=== PATIENT | male | born 1965 | race Caucasian/White ===

== ENCOUNTER 2021-06-17 22:07 | Emergency (ER) | payer OTHER ==
[~2021-06-17 22:07] MED LIST changes: -ULTRAM50 MG PO
[2021-06-18 00:23] LABS: HCT 43.1 % (42.0-52.0); HGB 14.5 g/dl (13.2-18.0); MCH 31.1 pg (25.0-31.0); MCHC 33.6 g/dL (32.0-36.0); MCV 92.5 fL (78.0-100.0); MPV 8.6 fL (6.0-9.5); RBC 4.66 M/uL (4.70-6.00); RDW 12.7 % (11.5-14.0); WBC 6.8 K/uL (4.0-10.5)
[2021-06-18 00:38] LABS: BUN/CREAT RATIO (CALC) 16.4 RATIO; CREATININE 0.67 mg/dL (0.67-1.17); POTASSIUM 4.2 mmol/L (3.5-5.1)
[2021-06-18] MEDS ORDERED: ULTRAM50 MG PO (08:36)
== END 2021-06-18 01:35 | disposition home or self-care (01) ==
LOC: FER 22:07
PROVIDERS: Emergency Medicine
DX: R00.2 Palpitations (principal)
CPT/HCPCS: 36415; 71045; 80048; 84484; 93005

== ENCOUNTER → 2021-06-17 | Day surgery (SDC) | payer OTHER ==
[~2021-06-17] VITALS: Ht 195.6 cm; Wt 89.0 kg
[~2021-06-17] MED LIST: ALEVE220 M1 PO; PERCOCET 5-3251 EACH PO; ULTRAM50 MG PO
[2021-06-17 09:34] LABS: HCT 43.6 % (42.0-52.0); HGB 14.8 g/dl (13.2-18.0); MCH 31.1 pg (25.0-31.0); MCHC 33.9 g/dL (32.0-36.0); MCV 91.6 fL (78.0-100.0); MPV 8.4 fL (6.0-9.5); RBC 4.76 M/uL (4.70-6.00); RDW 12.7 % (11.5-14.0)
[2021-06-17 09:51] LABS: ALBUMIN 4.1 g/dL (3.4-5.0); BILIRUBIN - TOTAL 0.5 mg/dL (0.2-1.0); BUN/CREAT RATIO (CALC) 12.9 RATIO; CREATININE 0.7 mg/dL (0.67-1.17); GLOBULIN (CALCULATION) 3.8 g/dL; POTASSIUM 4.1 mmol/L (3.5-5.1); TOTAL PROTEIN 7.9 g/dL (6.4-8.2)
== END | disposition home or self-care (01) ==
LOC: FAS 08:42
PROVIDERS: Orthopaedic Surgery
DX: M75.112 Incomplete rotator cuff tear or rupture of left shoulder, not specified as traumatic (principal); M75.52 Bursitis of left shoulder; M77.8 Other enthesopathies, not elsewhere classified; M25.812 Other specified joint disorders, left shoulder
CPT/HCPCS: 36415; 71045; 80053; 93005; J0171; J0690; J1100; J2250; J2704; J2710; J2795; J3010; J7120

== ENCOUNTER 2022-05-16 13:36 | Emergency (ER) | payer OTHER ==
[~2022-05-16 13:36] MED LIST changes: +DAILY VALUE1 EACH PO; +TRAMADOL PO; +ULTRAM50 MG PO; +VITAMIN B-121000 MC1 PO; +VITAMIN B6 PO
== END 2022-05-16 18:43 | disposition home or self-care (01) ==
LOC: FER 13:36
DX: S81.811A Laceration without foreign body, right lower leg, initial encounter (principal); Z88.5 Allergy status to narcotic agent; Z28.310 Unvaccinated for COVID-19; W01.0XXA Fall on same level from slipping, tripping and stumbling without subsequent striking against object, initial encounter; Y93.89 Activity, other specified

== ENCOUNTER → 2022-05-22 | Day surgery (SDC) | payer OTHER ==
[~2022-05-22] VITALS: Ht 195.6 cm; Wt 91.7 kg
== END | disposition home or self-care (01) ==
LOC: FAS 06:55
DX: Z12.11 Encounter for screening for malignant neoplasm of colon (principal); K62.1 Rectal polyp; K57.30 Diverticulosis of large intestine without perforation or abscess without bleeding; E78.00 Pure hypercholesterolemia, unspecified; Z87.891 Personal history of nicotine dependence; Z88.5 Allergy status to narcotic agent
CPT/HCPCS: J2704; J7120